=== PATIENT | female | born 1960 | race Hispanic/Latino ===

== ENCOUNTER → 2025-04-05 | Outpatient (CLI) | payer BC ==
[~2025-04-05] MED LIST: GLUC-145 PO; L. A1CAP13 PO; LEVO88TA4 PO; MULT-1203 PO; MV,I66.7 PO; MV-M1TAB20 PO; VITA400T9 PO
== END ==
LOC: RAH 09:12
PROVIDERS: ATTEND Family Medicine
DX: Z12.31 Encounter for screening mammogram for malignant neoplasm of breast (principal)
CPT/HCPCS: 77067